=== PATIENT | male | born 1960 | race Caucasian/White ===

== ENCOUNTER → 2018-08-02 | Outpatient (CLI) | payer BC ==
[~2018-08-02] MED LIST: AMLO-125 PO; AMLO-127 PO; AMOX-559 PO; LOSA-44 PO; LOSA100T75 PO; METO25TA91 PO; MICARDIS; NAPR220C12 PO; PANT40TA65 PO; PROTONIX; VIT-22 PO; [UNRECOGNIZED DRUG - OTHER] PO
--- NOTE | 2018-08-02 11:50 | RADIOLOGY IMAGING REPORT ---
FACILITY: [facility] - [place] PATIENT NAME: Nicola Chacon : 1960 MR: [id number] V: [id number] EXAM DATE: ORDERING PHYSICIAN: SALLIE QUINONES TECHNOLOGIST: Location: [facility] [place] Patient: Nicola Chacon : 1960 Visit/Account:[id number] Date of Sevice: 08/02/2018 KIDNEYS EXAMINATION: Renal ultrasound. History: Urinary retention COMPARISON STUDIES: FINDINGS: Kidneys: Right kidney- 11 x 4.6 x 4.9 cm Left kidney- 11 x 5.1 x 5.4 cm Uniform and symmetric blood flow in each kidney by Doppler ultrasound. Hydronephrosis: none Resistive index on the right 0.63 and on the left 0.66 is a mildly lobular contour to both kidneys Bladder: Bladder prevoid volume was 695 mL. Post for residual 6.8 mL. Bilateral ureteral jets are p resent. Bladder wall appears diffusely thickened. Prostate gland appears prominent and heterogeneou s. Abdominal aorta and IVC: Aorta and IVC are patent by Doppler ultrasound. IMPRESSION: Bladder wall appears diffusely thickened. The prostate gland is prominent and heterogeneous. Report Dictated By: Kelly Conway MD at 08/02/2018 11:44 AM Report E-Signed By: Kelly Conway MD at 08/02/2018 11:45 AM WSN:[email or web address]
== END ==
LOC: US 01:05
PROVIDERS: ATTEND Urology
DX: N40.1 Benign prostatic hyperplasia with lower urinary tract symptoms (principal)
CPT/HCPCS: 76705

== ENCOUNTER → 2018-11-18 | Outpatient (CLI) | payer BC | LOC: LAB 13:16 | PROVIDERS: ATTEND Urology | DX: N39.0 Urinary tract infection, site not specified (principal) | CPT/HCPCS: 81001; 87088 ==

== ENCOUNTER → 2018-11-22 | Outpatient (CLI) | payer BC ==
--- NOTE | 2018-11-22 11:05 | RADIOLOGY IMAGING REPORT ---
FACILITY: [facility] PATIENT NAME: Nicola Chacon : 1960 MR: [id number] V: [id number] EXAM DATE: ORDERING PHYSICIAN: SALLIE QUINONES TECHNOLOGIST: [facility] Patient: Nicola Chacon : 1960 Visit/Account:[id number] Date of Sevice: 11/22/2018 CT ABDOMEN PELVIS W/O CON HISTORY: Right kidney pain TECHNIQUE: Axial images acquired through the abdomen/pelvis. Coronal and sagittal reformatting also performed. No IV contrast administered.Dose Lowering Technique One of the following dose optimization techniques was utilized in the performance of this exam: Autom ated exposure control; adjustment of the mA and/or kV according to the patient's size; or use of an i terative reconstruction technique. Specific details can be referenced in the facility's radiology C T exam operational policy. COMPARISON: Renal ultrasound August 02, 2018 FINDINGS: Visualized lung bases: Mild linear stranding in the inferior right middle lobe and in the lower lobe s likely represent scarring. There is a 3 mm noncalcified nodule anterior aspect right middle lobe b est appreciated on image 10 of series 3 Hepatobiliary: Negative. Spleen: Spleen is borderline enlarged at 13.5 cm in length Adrenals: Negative. Pancreas: Negative. Kidneys ureters and bladder: There is no evidence of hydronephrosis or urolithiasis. The distalmost portion of the ureters within the pelvis appear dilated although the proximal two thirds do not. The bladder wall is extremely thickened measuring up to 1.5 cm in thickness Genitalia: Prostate gland is enlarged impinging upon the floor the bladder GI: There is diverticulosis of the left side of the colon although no CT evidence of acute diverticu litis. There is mild thickening of the wall the rectum which could represent an inflammatory process although clinical correlation needed. There are small appendicoliths There is a small hiatal hernia and fluid noted in the distal esophagus Vessels/spaces/nodes: There are shotty retroperitoneal lymph nodes Bones/soft tissues: There is a levoconvex scoliosis of the lumbar spine with moderate spondylotic ch anges are most prominent at L4-5 Additional findings: None pertinent. IMPRESSION: There is a 3 mm noncalcified nodule right middle lobe. Please see Fleischner Society recommendations Spleen is borderline enlarged The distalmost portion of the ureters within the pelvis appear dilated although the proximal two thir ds do not. There is no demonstration of urolithiasis. The bladder wall is extremely thickened measuring up to 1.5 cm in thickness. The prostate gland is e nlarged impinging upon the floor the bladder Diverticulosis of the left side of the colon although no CT evidence of acute diverticulitis. There is mild thickening of the wall the rectum which could represent an inflammatory process althoug h clinical correlation needed Small hiatal hernia with fluid noted in the distal esophagus suggesting possible gastroesophageal ref lux Additional chronic findings as described FLEISCHNER SOCIETY FOLLOW-UP GUIDELINES FOR NEWLY DETECTED INCIDENTAL NODULES IN PERSONS 35 YEARS OF AGE OR OLDER. *These recommendations do NOT apply to lung cancer screening, patients with immunosuppression or lydia ents with a known primary malignancy. SOLITARY SOLID NODULE If nodule size is < 6 mm: * Low risk patient ? No routine follow-up. * High risk patient ? Optional CT at 12 months. If nodule size is 6-8 mm: * Low risk patient ? CT at 6-12 months, then consider CT at 18-24 months if no change. * High risk patient ? CT at 6-12 months, then CT at 18-24 months if no change. If nodule size is > 8 mm: * Low risk patient ? Consider CT at 3, 9 and 24 months (if no change), PET/CT, tissue sampling or a combination thereof. * High risk patient ? Consider CT at 3, 9 and 24 months (if no change), PET/CT, tissue sampling, or a combination thereof. LOW RISK PA IENT: Minimal or absent history of tobacco use and of other known risk factors.HIGH RISK PATIENT: Tobacco use, family history of lung cancer, upper pulmonary lobe location of nodule, presenc e of emphysema, pulmonary fibrosis, older age. Anisa H, Chucho DP, Yonio JM, et al. Guidelines for Management of Incidental Pulmonary Nodules Dete cted on CT Images: From the Fleischner Society 2017. Radiology. [facility] Report Dictated By: Kelly Conway MD at 11/22/2018 10:44 AM Report E-Signed By: Kelly Conway MD at 11/22/2018 10:56 AM WSN:[email or web address]
== END ==
LOC: CT 04:06
PROVIDERS: ATTEND Urology
DX: R91.1 Solitary pulmonary nodule (principal); N32.89 Other specified disorders of bladder; N40.1 Benign prostatic hyperplasia with lower urinary tract symptoms; K44.9 Diaphragmatic hernia without obstruction or gangrene
CPT/HCPCS: 74176

== ENCOUNTER → 2018-11-26 | Outpatient (CLI) | payer BC ==
--- NOTE | 2018-11-26 16:37 | EKG ---
FACILITY: [facility] - [place] PATIENT NAME: BRIA ROBLEDO : [id number] MR: [id number] V: [id number] EXAM DATE: ORDERING PHYSICIAN: ENEDINA SANCHEZ TECHNOLOGIST: JOSE ALFREDO Test Reason : IRREGULAR PULSE Blood Pressure : / mmHG Vent. Rate : 059 BPM Atrial Rate : 059 BPM P-R Int : 192 ms QRS Dur : 108 ms QT Int : 428 ms P-R-T Axes : 057 059 043 degrees QTc Int : 423 ms Sinus bradycardia Otherwise normal ECG No previous ECGs available Confirmed by CLARA ARBOLEDA ([id number]) on 11/26/2018 4:41:15 PM Referred By: LAURA Confirmed By:CLARA ARBOLEDA
== END ==
LOC: RESP 11:22
PROVIDERS: ATTEND Nurse Practitioner Primary Care
DX: I49.9 Cardiac arrhythmia, unspecified (principal)